=== PATIENT | female | born 1985 | race African-American/Black ===

== ENCOUNTER 2021-08-29 13:38 | Outpatient (REF) | payer MEDICARE, MEDICAID, SELFPAY ==
--- NOTE | ~2021-08-29 | US_ITS ---
EXAMINATION: Right LOWER EXTREMITY DUPLEX CLINICAL INFORMATION: Peripheral vascular disease TECHNIQUE: Real-time ultrasound and Doppler techniques (integrating B-mode 2-D vascular images, Doppler spectral analysis and color flow Doppler imaging) were utilized to interrogate the lower extremities. COMPARISON: None FINDINGS: RIGHT LEG: Common femoral artery: 218 cm/s, monophasic Profunda femoris artery: 138 cm/s, monophasic Superficial femoral artery (proximal): 138 cm/s, monophasic Superficial femoral artery (mid): 94 cm/s, monophasic Superficial femoral artery (distal): 62 cm/s, monophasic Popliteal artery: 50 cm/s, monophasic Posterior tibial artery: 22 cm/s, monophasic Several small collateral vessels arising from the common femoral artery and superficial femoral artery. There is a prominent 2.4 cm inguinal lymph node. US/US arterial duplex LE RT IMPRESSION: Elevated velocity, monophasic flow in the right common femoral artery suggesting moderate stenosis. Monophasic flow throughout the remainder of the right lower extremity. Multiple collateral vessels identified.
== END 2021-08-29 13:39 | disposition home or self-care (01) ==
LOC: HO.US 13:38
PROVIDERS: Visit Provider Psychiatry & Neurology Neurology
DX: I73.9 Peripheral vascular disease, unspecified (principal)
CPT/HCPCS: 93926

== ENCOUNTER → 2022-08-16 08:07 | Outpatient (BNVA) | payer MEDICARE, MEDICAID, SELFPAY | PROVIDERS: Visit Provider Internal Medicine Rheumatology | DX: I77.6 Arteritis, unspecified (principal); I73.9 Peripheral vascular disease, unspecified; R76.0 Raised antibody titer; R76.8 Other specified abnormal immunological findings in serum; I10 Essential (primary) hypertension; N18.9 Chronic kidney disease, unspecified; F17.210 Nicotine dependence, cigarettes, uncomplicated | CPT/HCPCS: 99212 ==